=== PATIENT | female | born 1990 | race Caucasian/White ===

== ENCOUNTER 2023-12-28 22:21 | Emergency (ER) | payer BC ==
[2023-12-28 22:36] VITALS: BP 123/81; O2SAT 97
[2023-12-28 22:44] LABS: BILIRUBIN,URINE NEGATIVE (NEGATIVE); GLUCOSE, URINE (UA) NEGATIVE (NEGATIVE); KETONES,URINE (UA) NEGATIVE (NEGATIVE); LEUKOCYTE ESTERASE, URINE SMALL (NEGATIVE); NITRITE,URINE NEGATIVE (NEGATIVE); OCCULT BLOOD,URINE LARGE (NEGATIVE); PROTEIN,URINE NEGATIVE (NEGATIVE); UROBILINOGEN,URINE 0.2 (NORMAL) E.U./dL (NORMAL)
[2023-12-28 22:47] LABS: CLARITY,URINE HAZY (CLEAR)
[2023-12-28 22:48] LABS: HCG UR QUAL NEGATIVE
[2023-12-28 22:58] LABS: BACTERIA,URINE Moderate /HPF (None Seen); SQUAMOUS EPITHELIAL CELL,UR FEW Squamous (<= Few)
--- NOTE | 2023-12-28 23:11 | ED Physician Documentation ---
PD HPI FEMALE - Stated complaint Stated Complaint: - Chief complaint Chief Complaint: UTI - History obtained from History obtained from: Patient - Additional information Additional information: HPI from patient. Patient is visiting [facility] from [place]. Patient complains of urinary frequency, burning/painful urination. The symptoms started yesterday and are similar to previous urinary tract infections she has had. She denies back pain, fever. Review of Systems Constitutional: denies: Fever : reports: Dysuria, Frequency Musculoskeletal: denies: Back pain PD PAST MEDICAL HISTORY - Past Medical History Past Medical History: Yes Cardiovascular: High cholesterol Endocrine/Autoimmune: HyPERthyroidism Psych: Anxiety - Past Surgical History Past Surgical History: Yes /DAMAGE APPRAISER: Other - Present Medications Home Medications: Ambulatory Orders Medication Instructions Recorded Confirmed Nitrofurantoin [Macrobid] 100 mg PO BID #10 cap 12/28/23 Phenazopyridine HCl [Pyridium] 200 mg PO TID PRN #6 tablet 12/28/23 - Allergies Allergies/Adverse Reactions: Allergies Allergy/AdvReac Type Severity Reaction Status Date / Time No Known Drug Allergies Allergy Verified 12/28/23 22:27 - Social History Does the pt smoke?: No Smoking Status: Never smoker Does the pt drink ETOH?: No Does the pt have substance abuse?: No - Immunizations Immunizations are current?: Yes - POLST Patient has POLST: No PD ED PE NORMAL - Vitals Vital signs reviewed: Yes - General General: Alert and oriented X 3, No acute distress, Well developed/nourished - Abdomen Abdomen: Soft, Non tender - Back Back: No CVA TTP Results - Vitals Vitals: Vital Signs - 24 hr 12/28/23 22:27 Temperature 36.6 C Heart Rate 88 Respiratory 16 Rate Blood Pressure 123/81 H O2 Saturation 97 Oxygen O2 Source Room air - Labs Labs: Laboratory Tests 12/28/23 22:34 Urine Color YELLOW Urine Clarity HAZY Urine pH 6.0 Ur Specific [place] <=1.005 Urine Protein NEGATIVE Urine Glucose (UA) NEGATIVE Urine Ketones NEGATIVE Urine Occult Blood LARGE H Urine Nitrite NEGATIVE Urine Bilirubin NEGATIVE Urine Urobilinogen 0.2 (NORMAL) Ur Leukocyte Esterase SMALL H Urine RBC 6-10 H Urine WBC 11-25 H Ur Squamous Epith Cells FEW Squamous Urine Bacteria Moderate H Ur Microscopic Review INDICATED Urine Culture Comments INDICATED Urine HCG, Qual NEGATIVE PD Medical Decision Making - ED course Complexity details: considered differential, d/w patient ED course: Urinalysis result is consistent with UTI, concordant with HPI. She is given Macrobid and Pyridium in the ER and provided prescriptions for these medications. Test results, diagnosis, and prognosis were all discussed with the patient. Departure - Departure Disposition: 01 Home, Self Care Clinical Impression: Urinary tract infection Condition: Good Instructions: ED UTI Cystitis Female Prescriptions: Nitrofurantoin [Macrobid] 100 mg PO BID #10 cap Phenazopyridine HCl [Pyridium] 200 mg PO TID PRN #6 tablet PRN Reason: dysuria Comments: The results of the urinalysis are consistent with urinary tract infection. You were given the first dose of an antibiotic (nitrofurantoin) in the emergency department and I am providing with a prescription for a 5-day course of this antibiotic. You were also given a dose of Pyridium; this is a medication that can help alleviate the symptoms of a urinary tract infection. Limit the use of the Pyridium to no more than 2 days.
[2023-12-28] MEDS: NITROFURANTOIN MACRO 100 MG CAPSULE PO STA (23:22)
[2023-12-28] MEDS: PHENAZOPYRIDINE 100 MG TABLET PO STA (23:22)
== END 2023-12-28 23:30 | disposition home or self-care (01) ==
LOC: ED 22:21
DX: N39.0 Urinary tract infection, site not specified (principal); Z32.02 Encounter for pregnancy test, result negative
CPT/HCPCS: 81001; 81025; 87086; 87181; 99283; A9270; 81003